=== PATIENT | female | born 1980 | race Caucasian/White ===

== ENCOUNTER 2018-09-29 16:37 | Emergency (ER) | payer SELFPAY ==
[~2018-09-29] VITALS: Ht 172.7 cm; Wt 84.8 kg
[2018-09-29] MEDS ORDERED: DEXL60CA2 PO (17:12)
--- NOTE | 2018-09-29 17:12 | NUR ---
MD COLLINS. PT REPORTS LS ABD PAIN. [facility] - [facility] DID AN US AND TOLD HER THEY SUSPECT AN ECTOPIC PREG. SHE IS HERE FOR FURTHER TESTING. ANTONIO. FLORENCIO.
[2018-09-29 17:30] LABS: BASOPHILS # (AUTO) 0.02 x10^3/uL (0-0.1); BASOPHILS % (AUTO) 0 % (0-1); EOSINOPHILS # (AUTO) 0.11 x10^3/uL (0-0.4); EOSINOPHILS % (AUTO) 1 % (1-7); LYMPHOCYTES # (AUTO) 2.49 x10^3/uL (1-3.4); LYMPHOCYTES % (AUTO) 33 % (22-44); MD NO; MEAN CORPUSCULAR HGB CONC 33.3 g/dL (32.4-35.8); MEAN CORPUSCULAR VOLUME 96.1 fL (80-100); MONOCYTES # (AUTO) 0.56 x10^3/uL (0.2-0.8); MONOCYTES % (AUTO) 7 % (2-9); NEUTROPHILS # (AUTO) 4.47 x10^3/uL (1.8-6.8); NEUTROPHILS % (AUTO) 59 % (42-75); PLATELET COUNT 336 x10^3/uL (130-400); RED BLOOD COUNT 4.46 x10^6/uL (3.82-5.3); RED CELL DISTRIBUTION WIDTH 12.7 % (9.6-15.2)
[2018-09-29 17:37] LABS: ANION GAP 10 mmol/L (5-15); CALCIUM 9.1 mg/dL (8.5-10.1); CHLORIDE 107 mmol/L (98-107)
--- NOTE | 2018-09-29 18:00 | NUR ---
PT RESTING AND WATCHING TV. SO REPORTED HE HAS TO LEAVE AND WILL COME BACK LATER. PT AND SO REQUESTED A CALL TO SO PHONE IF ANYTHING CHANGED OR HAPPENED WITH PT.
--- NOTE | 2018-09-29 18:33 | NUR ---
PT BACK FROM IMAGING. VSS. MATIAS.
--- NOTE | 2018-09-29 18:54 | NUR ---
SVETLANA SAID IT IS OK TO TELL PT SHE HAS A UTERINE PREG. PT INFORMED. PT APPEARS SURPRISED AND UNSURE OF HOW TO PROCESS THE INFORMATION. RESOURCS OFFERED TO PT. ANTONIO. FLORENCIO.
--- NOTE | 2018-09-29 19:11 | NUR ---
REPORT GIVEN TO PM NURSE.
--- NOTE | 2018-09-29 19:15 | NUR ---
Assumed care, bedside report recieved, pt resting on gurney, significant other at bedside.
[2018-09-29 19:39] VITALS: BP 114/60
== END 2018-09-29 19:43 | disposition home or self-care (01) ==
LOC: ED 19:00
DX: O26.891 Other specified pregnancy related conditions, first trimester (principal); Z3A.09 9 weeks gestation of pregnancy
CPT/HCPCS: 36415; 76801; 80048; 82040; 84702; 85025; 86901; 99284

== ENCOUNTER → 2020-12-10 | Outpatient (CLI) | payer OTHER ==
[~2020-12-10] MED LIST: DEXL60CA2 PO
== END | disposition home or self-care (01) ==
LOC: RAD 12:39
PROVIDERS: ATTEND Podiatrist Foot & Ankle Surgery
DX: M79.672 Pain in left foot (principal); M79.674 Pain in right toe(s)